=== PATIENT | male | born 1960 | race Caucasian/White ===

== ENCOUNTER 2017-06-15 14:57 | Inpatient (IN) | payer MEDICAID ==
[2017-06-15] VITALS (20 sets, daily range): BP systolic 94–117; BP diastolic 65–77; BMI 26.1
[~2017-06-15] VITALS: Ht 172.7 cm; Wt 84.4 kg
[2017-06-15 16:06] LABS: HEMATOCRIT 63.4 % (42.0-54.0); HEMOGLOBIN 19.1 g/dL (13.5-17.5); MCH 31.6 pg (26.0-34.0); MCHC 30.1 g/dL (31.0-37.0); MCV 104.8 fL (80.0-100.0); MEAN PLATELET VOLUME 13.3 fL (7.4-10.4); PLATELET COUNT 215 10x3/uL (130-400); RBC 6.05 10x6/uL (4.20-6.10); RDW 14.1 % (11.5-14.5)
[2017-06-15 16:11] LABS: INR 1.05 (0.85-1.17); PROTIME 13.3 SECONDS (11.6-15.0)
[2017-06-15 16:14] LABS: APPEARANCE CLEAR (CLEAR); BILIRUBIN NEGATIVE (NEGATIVE); COLOR YELLOW (YELLOW); GLUCOSE 1000 mg/dL (NEGATIVE); KETONE SMALL mg/dL (NEGATIVE); NITRITE NEGATIVE (NEGATIVE); PROTEIN TRACE mg/dL (NEGATIVE); UROBILINOGEN NORMAL (NORMAL)
[2017-06-15 16:21] LABS: BACTERIA MODERATE /hpf (NONE SEEN); EPITHELIAL CELLS 0-5 /hpf (0-5); GRANULAR CAST OCC /lpf (NONE SEEN); HYALINE CAST OCC /lpf (NONE SEEN); MUCUS <1+ /lpf (NONE SEEN); RED CELLS - URINE 0-5 /hpf (0-5)
[2017-06-15 16:26] LABS: ALBUMIN 4.7 g/dL (3.4-5.0); ALKALINE PHOSPHATASE 196 U/L (46-116); ALT (SGPT) 39 U/L (10-68); BILIRUBIN - TOTAL 1.74 mg/dL (0.2-1.3); CALCIUM 11.3 mg/dL (8.5-10.1); CARBON DIOXIDE 18.3 mmol/L (21.0-32.0); CHLORIDE - SERUM 98 mmol/L (98-107); CREATININE - SERUM 3.3 mg/dL (0.6-1.3); POTASSIUM - SERUM 5.7 mmol/L (3.5-5.1); PROTEIN - SERUM 8.9 g/dL (6.4-8.2); SODIUM 146 mmol/L (136-145); UREA NITROGEN 73 mg/dL (7-18); eGFR NON AFRICAN AMERICAN 21 mL/min (90-120)
[2017-06-15 16:28] LABS: LYMPHOCYTES 8 % (15-50); MONOCYTES 3 % (2-11); NEUTROPHILS 78 % (40-80); PLATELET ESTIMATE NORMAL
[2017-06-15 16:40] LABS: CREATINE KINASE 737 UL (21-232); PRO BNP 362 pg/mL (0-125)
[2017-06-15 16:46] LABS: CALC OSMOLALITY 387 mosm/kg (275-300); TROPONIN-I < 0.017 ng/mL (0.000-0.060)
[2017-06-15 16:48] LABS: GLUCOSE 1448 mg/dL (74-106); MAGNESIUM - SERUM 3.7 mg/dL (1.8-2.4)
[2017-06-15 16:49] LABS: CKMB 3.3 U/L (0.0-3.6)
[2017-06-15 16:55] LABS: KETONE - SERUM MODERATE mg/dL (NEGATIVE)
[2017-06-15 18:27] LABS: PHOSPHOROUS 2.9 mg/dL (2.5-4.9)
[2017-06-15 19:02] LABS: MAGNESIUM - SERUM 3.5 mg/dL (1.8-2.4)
[2017-06-15 19:23] LABS: HEMOGLOBIN A1C 8.7 % (4.8-6.0)
[2017-06-15 19:34] LABS: ANION GAP 23.3 mmol/L (8-16); CALCIUM 9.8 mg/dL (8.5-10.1); CARBON DIOXIDE 21.8 mmol/L (21.0-32.0); CREATININE - SERUM 3.5 mg/dL (0.6-1.3); MAGNESIUM - SERUM 3.1 mg/dL (1.8-2.4)
[2017-06-15 20:01] LABS: THYROID STIMULATING HORMONE 0.49 uIU/mL (0.36-3.74)
[2017-06-15 20:06] LABS: KETONE - SERUM SMALL mg/dL (NEGATIVE)
[2017-06-15 20:10] LABS: POTASSIUM - SERUM 3.1 mmol/L (3.5-5.1)
[2017-06-16] VITALS (24 sets, daily range): BP systolic 91–169; BP diastolic 72–150; Ht 172.7 cm; Wt 84.4 kg
[2017-06-16 01:37] LABS: CALCIUM 9.8 mg/dL (8.5-10.1); CARBON DIOXIDE 22.7 mmol/L (21.0-32.0); CREATININE - SERUM 3.2 mg/dL (0.6-1.3); MAGNESIUM - SERUM 3.1 mg/dL (1.8-2.4)
[2017-06-16 01:38] LABS: ANION GAP 16.9 mmol/L (8-16); POTASSIUM - SERUM 3.6 mmol/L (3.5-5.1)
[2017-06-16 07:37] LABS: BASOPHILS 0.2 % (0-2); EOSINOPHILS 0.1 % (0-7); HEMATOCRIT 54.1 % (42.0-54.0); HEMOGLOBIN 17.7 g/dL (13.5-17.5); IMMATURE GRANULOCYTES 0.5 % (0-5); LYMPHOCYTES 5.1 % (15-50); MCH 31.1 pg (26.0-34.0); MCHC 32.7 g/dL (31.0-37.0); MONOCYTES 14.4 % (2-11); NEUTROPHILS 79.7 % (40-80); PLATELET COUNT 199 10x3/uL (130-400); RDW 13.6 % (11.5-14.5); WBC 19.5 10x3/uL (4.8-10.8)
[2017-06-16 07:47] LABS: MCV 94.9 fL (80.0-100.0)
[2017-06-16 08:06] LABS: BILIRUBIN - TOTAL 1.1 mg/dL (0.2-1.3); CALCIUM 10.1 mg/dL (8.5-10.1); CARBON DIOXIDE 23.7 mmol/L (21.0-32.0); CREATININE - SERUM 3.5 mg/dL (0.6-1.3); PROTEIN - SERUM 7.6 g/dL (6.4-8.2)
[2017-06-16 08:09] LABS: ALBUMIN 3.5 g/dL (3.4-5.0); ANION GAP 19.9 mmol/L (8-16); POTASSIUM - SERUM 4.6 mmol/L (3.5-5.1)
[2017-06-16 13:07] LABS: CARBON DIOXIDE 21.8 mmol/L (21.0-32.0); MAGNESIUM - SERUM 2.9 mg/dL (1.8-2.4); POTASSIUM - SERUM 4.2 mmol/L (3.5-5.1)
[2017-06-16 13:18] LABS: ANION GAP 21.4 mmol/L (8-16)
[2017-06-16 18:14] LABS: CALCIUM 9.6 mg/dL (8.5-10.1); CARBON DIOXIDE 22.9 mmol/L (21.0-32.0); CREATININE - SERUM 4.2 mg/dL (0.6-1.3); MAGNESIUM - SERUM 2.6 mg/dL (1.8-2.4); POTASSIUM - SERUM 4.4 mmol/L (3.5-5.1)
[2017-06-16 18:17] LABS: ANION GAP 19.5 mmol/L (8-16)
[2017-06-17] VITALS (22 sets, daily range): BP systolic 108–146; BP diastolic 82–99
[2017-06-17 01:32] LABS: CALCIUM 9.1 mg/dL (8.5-10.1); CARBON DIOXIDE 24.2 mmol/L (21.0-32.0); CREATININE - SERUM 4.2 mg/dL (0.6-1.3); POTASSIUM - SERUM 3.8 mmol/L (3.5-5.1)
[2017-06-17 01:33] LABS: ANION GAP 18.6 mmol/L (8-16)
[2017-06-17 04:26] LABS: BASOPHILS 0 % (0-2); EOSINOPHILS 0.5 % (0-7); HEMOGLOBIN 15.8 g/dL (13.5-17.5); IMMATURE GRANULOCYTES 0.5 % (0-5); LYMPHOCYTES 7.6 % (15-50); MCH 31.9 pg (26.0-34.0); MCHC 33.6 g/dL (31.0-37.0); MCV 94.8 fL (80.0-100.0); MONOCYTES 8.7 % (2-11); NEUTROPHILS 82.7 % (40-80); PLATELET COUNT 162 10x3/uL (130-400); RBC 4.96 10x6/uL (4.20-6.10); RDW 13.7 % (11.5-14.5); WBC 18.6 10x3/uL (4.8-10.8)
[2017-06-17 04:56] LABS: ALBUMIN 2.8 g/dL (3.4-5.0); BILIRUBIN - TOTAL 1.2 mg/dL (0.2-1.3); CALCIUM 8.9 mg/dL (8.5-10.1); CARBON DIOXIDE 18.3 mmol/L (21.0-32.0); POTASSIUM - SERUM 4.3 mmol/L (3.5-5.1); PROTEIN - SERUM 6.9 g/dL (6.4-8.2)
[2017-06-17 09:01] LABS: CALCIUM 9.2 mg/dL (8.5-10.1); CREATININE - SERUM 3.9 mg/dL (0.6-1.3); MAGNESIUM - SERUM 2.6 mg/dL (1.8-2.4); POTASSIUM - SERUM 4.1 mmol/L (3.5-5.1)
[2017-06-17 09:11] LABS: ANION GAP 19.1 mmol/L (8-16)
[2017-06-17 10:16] LABS: HEMOGLOBIN A1C 10.7 % (4.8-6.0)
[2017-06-17 11:00] LABS: APPEARANCE HAZY (CLEAR); COLOR YELLOW (YELLOW)
[2017-06-17 11:01] LABS: BILIRUBIN NEGATIVE (NEGATIVE); GLUCOSE 50 mg/dL (NEGATIVE); KETONE SMALL mg/dL (NEGATIVE); NITRITE NEGATIVE (NEGATIVE); PROTEIN NEGATIVE (NEGATIVE); UROBILINOGEN NORMAL (NORMAL)
[2017-06-17 11:02] LABS: AMORPHOUS SEDIMENT <1+ /lpf (NONE SEEN); BACTERIA FEW /hpf (NONE SEEN); EPITHELIAL CELLS 0-5 /hpf (0-5); WHITE CELLS - URINE 0-5 /hpf (0-5)
[2017-06-17 13:13] LABS: CALCIUM 9.2 mg/dL (8.5-10.1); CARBON DIOXIDE 19.2 mmol/L (21.0-32.0); CREATININE - SERUM 3.6 mg/dL (0.6-1.3); MAGNESIUM - SERUM 2.3 mg/dL (1.8-2.4)
[2017-06-17 13:23] LABS: ANION GAP 21.6 mmol/L (8-16); POTASSIUM - SERUM 4.8 mmol/L (3.5-5.1)
[2017-06-18] VITALS (9 sets, daily range): BP systolic 110–142; BP diastolic 72–89
[2017-06-18 05:54] LABS: BASOPHILS 0.1 % (0-2); EOSINOPHILS 1.8 % (0-7); HEMATOCRIT 44.1 % (42.0-54.0); HEMOGLOBIN 14.2 g/dL (13.5-17.5); IMMATURE GRANULOCYTES 0.2 % (0-5); LYMPHOCYTES 12.2 % (15-50); MCH 31.6 pg (26.0-34.0); MCHC 32.2 g/dL (31.0-37.0); MEAN PLATELET VOLUME 13.3 fL (7.4-10.4); MONOCYTES 7.4 % (2-11); NEUTROPHILS 78.3 % (40-80); PLATELET COUNT 133 10x3/uL (130-400); RDW 13.7 % (11.5-14.5)
[2017-06-18 06:09] LABS: ALBUMIN 2.9 g/dL (3.4-5.0); BILIRUBIN - TOTAL 2.21 mg/dL (0.2-1.3); CALCIUM 8.5 mg/dL (8.5-10.1); CREATININE - SERUM 2.7 mg/dL (0.6-1.3); POTASSIUM - SERUM 4.5 mmol/L (3.5-5.1); PROTEIN - SERUM 5.9 g/dL (6.4-8.2)
[2017-06-18 06:23] LABS: ANION GAP 16.2 mmol/L (8-16); CARBON DIOXIDE 24.3 mmol/L (21.0-32.0)
[2017-06-19 04:00] VITALS: BP 139/89
[2017-06-19 06:48] LABS: BASOPHILS 0 % (0-2); EOSINOPHILS 2.4 % (0-7); HEMOGLOBIN 13.5 g/dL (13.5-17.5); IMMATURE GRANULOCYTES 0.2 % (0-5); LYMPHOCYTES 15.5 % (15-50); MCH 31.3 pg (26.0-34.0); MCHC 32.1 g/dL (31.0-37.0); MCV 97.4 fL (80.0-100.0); MONOCYTES 8.2 % (2-11); NEUTROPHILS 73.7 % (40-80); PLATELET COUNT 126 10x3/uL (130-400); RBC 4.31 10x6/uL (4.20-6.10); RDW 13.1 % (11.5-14.5)
[2017-06-19 06:59] LABS: WBC 8.8 10x3/uL (4.8-10.8)
[2017-06-19 07:03] LABS: ALBUMIN 2.8 g/dL (3.4-5.0); ANION GAP 14.3 mmol/L (8-16); BILIRUBIN - TOTAL 1.6 mg/dL (0.2-1.3); CALCIUM 8.9 mg/dL (8.5-10.1); CARBON DIOXIDE 25.7 mmol/L (21.0-32.0); PROTEIN - SERUM 6.2 g/dL (6.4-8.2)
[2017-06-19 07:11] LABS: CREATININE - SERUM 1.8 mg/dL (0.6-1.3)
[2017-06-19 08:04] VITALS: BP 106/75
[2017-06-19 11:34] VITALS: BP 129/85
[2017-06-19 15:37] VITALS: BP 112/73
[2017-06-19 21:26] VITALS: BP 126/76
[2017-06-20 01:29] VITALS: BP 125/88
[2017-06-20 06:40] LABS: BASOPHILS 0 % (0-2); EOSINOPHILS 1.8 % (0-7); HEMOGLOBIN 12.9 g/dL (13.5-17.5); IMMATURE GRANULOCYTES 0.2 % (0-5); LYMPHOCYTES 20.6 % (15-50); MCH 31.6 pg (26.0-34.0); MCHC 33.1 g/dL (31.0-37.0); MCV 95.6 fL (80.0-100.0); MEAN PLATELET VOLUME 12.6 fL (7.4-10.4); MONOCYTES 9.7 % (2-11); NEUTROPHILS 67.7 % (40-80); PLATELET COUNT 111 10x3/uL (130-400); RBC 4.08 10x6/uL (4.20-6.10); RDW 12.7 % (11.5-14.5); WBC 8.4 10x3/uL (4.8-10.8)
[2017-06-20 06:59] LABS: ALBUMIN 2.6 g/dL (3.4-5.0); ANION GAP 15.6 mmol/L (8-16); BILIRUBIN - TOTAL 1.35 mg/dL (0.2-1.3); CALCIUM 8.6 mg/dL (8.5-10.1); CARBON DIOXIDE 22.8 mmol/L (21.0-32.0); CREATININE - SERUM 1.4 mg/dL (0.6-1.3); POTASSIUM - SERUM 4.4 mmol/L (3.5-5.1); PROTEIN - SERUM 5.8 g/dL (6.4-8.2)
[2017-06-20 07:58] VITALS: BP 124/78
[2017-06-20 11:24] VITALS: BP 128/87
[2017-06-20] MEDS ORDERED: LEVEMIR100 U/M1 SC (13:11)
[2017-06-20] MEDS ORDERED: HUMULIN R100 U/ML SC (13:13)
[2017-06-20] MEDS ORDERED: GLUCOPHAGE500 MG PO (13:15)
== END 2017-06-20 16:57 | disposition home or self-care (01) | DRG 871 ==
LOC: D.ER 14:57 → D.ICU 16:45 → D.CVICU 16:45 → D.ICU 22:21 → D.M2 06-18 12:45
PROVIDERS: Emergency Medicine; Internal Medicine Nephrology
PROC: 0T9B70Z Drainage of Bladder with Drainage Device, Via Natural or Artificial Opening (ICD-10-PCS; principal; 2017-06-15)
DX: A41.9 Sepsis, unspecified organism (principal); E11.10 Type 2 diabetes mellitus with ketoacidosis without coma; G93.41 Metabolic encephalopathy; N39.0 Urinary tract infection, site not specified; N17.9 Acute kidney failure, unspecified; E87.5 Hyperkalemia